=== PATIENT | male | born 1965 | race Caucasian/White ===

== ENCOUNTER 2017-01-29 23:17 | Inpatient (IN) ==
[2017-01-30] MEDS ORDERED: SODIUM CHLORIDE 0.9% 1,000 ML IV STA (00:50)
[2017-01-30] MEDS ORDERED: HYDROmorphone 2 MG/1 ML VIAL IV STA (00:50)
[2017-01-30] MEDS ORDERED: PANTOPRAZOLE 40 MG VIAL IV STA (00:50)
[2017-01-30] MEDS ORDERED: ONDANSETRON 4 MG/2 ML VIAL IV STA (00:50)
[2017-01-30] MEDS ORDERED: ONDANSETRON 4 MG/2 ML VIAL ONE (01:04)
[2017-01-30] MEDS ORDERED: HYDROmorphone 2 MG/1 ML VIAL ONE (01:04)
[2017-01-30] MEDS ORDERED: PANTOPRAZOLE 40 MG VIAL IV ONE (01:04)
[2017-01-30 01:09] LABS: Basophils # 0.1 10*3/uL (0.0-0.2); Basophils % 0.7 % (0.0-0.8); Eosinophils # 0.2 10*3/uL (0.0-0.87); Eosinophils % 1.5 % (0.00-10.9); Hemoglobin 17.1 GM/DL (14.0-18.0); Immature Granulocytes % 0.6 %; Immature Granulocytes Absolute 0.07 #; Lymphocytes # 3.1 10*3/uL (1.4-4.0); Mean Corpuscular HGB Conc 34.9 GM/DL (32-36); Mean Corpuscular Hemoglobin 32 PG (27-34); Mean Corpuscular Volume 90.9 FL (87-102); Monocytes # 0.7 10*3/uL (0.11-0.8); Monocytes % 6.4 % (1.7-12.7); Neutrophils # 7.4 10*3/uL (1.4-7.4); Neutrophils % 63.8 % (38.7-73.9); Platelet Count 293 T/CUMM (130-400); Red Blood Count 5.39 MC/CUMM (3.8-5.5); Red Cell Distribution Width 12.8 % (9.3-17.3); White Blood Count 11.6 T/CUMM (4-12)
--- NOTE | 2017-01-30 01:10 | Order Completion Report ---
See report scanned to EMR
--- NOTE | 2017-01-30 01:17 | Emergency Department Note ---
Adin Mabry Brittany, am scribing for, and in the presence of, Denis Bernstein MD 01:05. Day Mabry Charles R, MD, personally performed the services described in this documentation, ascribed by Yadira Oakley in my presence, and it is both accurate and complete . Arrival - Arrival Chief Complaint: Abdominal / Flank Pain Stated Complaint: bowel ED Nursing Triage Note: Patient to triage being sent from [facility] for further eval and treatment of SBO. Patient arrives to our ED with severe ABD pain. Patient reports last BM today, but states he has not been passing gas. denies N/V. [facility] ED was unable to put NG tube in patient. Patient arrives with records and CT report from [facility] ED. Mode of Arrival: Ambulatory Limitations: No Limitations Source: Patient, Family Time Seen by Provider: 01/30/17 00:40 - History of Present Illness HPI Narrative: This is a 51 y/o white male,who presents to the ED by EMS with c/o severe abdominal pain which started earlier today. He was sent from [facility] for further evaluation of SBO. He states he has had pancreatitis 5 years ago. He reports he seldom drinks beer now. He denies vomiting but notes nausea. When asked if he could try an NG tube in pt, he states "No because they were unsuccessful and caused me to have nosebleeds and trauma to the sinuses." While at [facility] a CT of the abdomen was preformed which reads as follows: Mid abdomen with likely closed loop small bowel obstruction with decompressed proximal small bowel and distal bowel. Left kidney with small intrarenal stone, non-obstructing. No obstructing ureter stone nor obstructive hydronephrosis. Pt has no other complaints/pain in the ED at this time. Pt has a PMhx of IDDM and pancreatisis. Pt has had abdominal surgeries (unknown at this time). Pt denies a family medical Hx. Pt seldom drinks beer. Onset (ago): hour(s) (Started at 2300 tonight) Consistency: constant Severity: severe, similar to previous episodes Allergies/Adverse Reactions: Allergies Allergy/AdvReac Type Severity Reaction Status Date / Time aspirin Allergy HIVES Verified 01/30/17 00:01 Home Medications: Home Medications Medication Instructions Recorded Confirmed Type Fenofibrate 1 tablet PO DAILY 01/30/17 01/30/17 History Insulin NPH Hum/Reg Insulin Hm 30 units SUBCUT DAILY W/BREAKFAST 01/30/17 History [NovoLIN 70/30] Insulin Regular, Human [NovoLIN R] 10 units SUBCUT DAILY W/SUPPER 01/30/1701/30 History Pravastatin [Pravachol] 1 tablet PO DAILY 01/30/17 01/30/17 History glyBURIDE [Glyburide] 2 tablet PO BID 01/30/17 01/30/17 History metFORMIN [Glucophage] 2 tablet PO BID 01/30/17 01/30/17 History Review of System - Review of System 12 point system: reviewed and no additional remarkable complaints except as stated - Review of System Gastrointestinal: Present: abdominal pain, nausea. Absent: vomiting Medical,Surgical,& Family Hx - Medical History Endocrine: History of: Diabetes Mellitus (IDDM) Gastrointestinal: History of: Pancreatitis - Surgical History Abdominal Surgeries: Surgical HX of: Abdominal Surgery - Social History Smoking Status: Smoker, status unknown Frequency of Alcohol Use: Rarely Type of Drug Use: None Exam Vital Signs: Vital Signs Temperature 98.6 F 01/29/17 23:54 Pulse Rate 98 H 01/29/17 23:54 Respiratory Rate 20 01/29/17 23:54 Blood Pressure 159/103 01/29/17 23:54 O2 Sat by Pulse Oximetry 96 01/29/17 23:54 - General General appearance: alert, in distress (Pt is in pain and uncomfortable ) - Eye Eye exam: Present: PERRL, EOMI. Absent: nystagmus - ENT ENT exam: Present: mucous membranes moist - Neck Neck exam: Present: trachea midline. Absent: tenderness - Chest Chest inspection: Present: symmetric chest wall rise. Absent: tenderness - Respiratory Respiratory exam: Present: normal lung sounds bilaterally. Absent: respiratory distress - Cardiovascular Cardiovascular exam: Present: normal rhythm, tachycardia, normal heart sounds. Absent: murmur, rubs, gallop, clicks, JVD - Abdominal Exam Abdominal exam: Present: tenderness (Diffuse abdominal tenderness), hypoactive bowel sounds (No bowel sounds ) - Rectal Exam Rectal exam: Present: deferred - Extremities Exam Extremities exam: Present: full ROM, normal capillary refill. Absent: tenderness, pedal edema, joint swelling, calf tenderness - Back Exam Back exam: Present: full ROM. Absent: tenderness, muscle spasm, rashes - Neurological Exam Neurological exam: Present: alert, oriented X3, CN II-XII intact. Absent: motor sensory deficit - Psychiatric Psychiatric exam: Present: normal affect, normal mood. Absent: depressed, agitated, anxious, flat affect, manic - Skin Skin exam: Present: warm, dry, intact, normal color. Absent: rash, cyanosis, diaphoresis Course - Consultations Consultation #1: Dr. Roldan will admit patient Time: 00:50 Results - Labs CBC & BMP: 01/30/17 00:50 Lab Results: I have reviewed the patients labs Labs: All results and CT scans from previous facility reviewed Disposition Clinical Impression: Abdominal pain, Small bowel obstruction Case discussed with: patient, patient's family Disposition: Still a Patient Condition: Guarded Time of Disposition: 01:16
[2017-01-30 01:29] LABS: Lactic Acid 1.2 MMOL/L (0.4-2.0)
[2017-01-30 01:31] LABS: Alanine Aminotransferase 43 U/L (16-61); Albumin 4.6 G/DL (3.4-5.0); Alkaline Phosphatase 50 U/L (45-117); Amylase 33 U/L (25-115); Aspartate Amino Transferase 22 U/L (0-37); Blood Urea Nitrogen 14 MG/DL (7-18); Calcium 9.1 MG/DL (8.5-10.1); Glucose 192 MG/DL (74-106); Osmolality,Calculated 282.5 MOS/KG (273-304); Potassium 4.3 MMOL/L (3.5-5.1); Sodium 139 MMOL/L (136-145); Total Protein 7.5 G/DL (6.4-8.3); Troponin I Only < 0.015 NG/ML (0.00-0.045)
[2017-01-30] MEDS ORDERED: DEXTROSE 50% 25 GM/50 ML SYRINGE IV PRN (01:54)
[2017-01-30] MEDS ORDERED: ALBUTEROL/IPRATROPIUM 3 ML NEB RESP TX PRN (01:54)
[2017-01-30] MEDS ORDERED: HYDROmorphone 2 MG/1 ML VIAL IV PRN (01:54)
[2017-01-30] MEDS ORDERED: ONDANSETRON 4 MG/2 ML VIAL IV PRN ×2 (01:54→09:44)
[2017-01-30] MEDS ORDERED: ACETAMINOPHEN 325 MG TABLET PO PRN (01:54)
[2017-01-30] MEDS ORDERED: GLUCAGON 1 MG VIAL IM PRN (01:54)
[2017-01-30] MEDS: SODIUM CHLORIDE 0.9% 1,000 ML IV SCH ×2 (02:30→11:59)
[2017-01-30] MEDS: metroNIDAZOLE INJ 500 MG in PREMIX 1 EACH IV SCH ×3 (03:03→18:27)
[2017-01-30] MEDS: PIPERACILLIN/TAZOBACTAM 3,375 MG in SODIUM CHLORIDE 0.9% 100 ML IV SCH ×3 (04:28→20:51)
[2017-01-30 06:42] LABS: Basophils % 0.7 % (0.0-0.8); Eosinophils % 1.3 % (0.00-10.9); Hematocrit 46.1 VOL% (42.0-52.0); Hemoglobin 15.7 GM/DL (14.0-18.0); Immature Granulocytes % 0.7 %; Lymphocytes # 2.9 10*3/uL (1.4-4.0); Lymphocytes % 29.2 % (21.2-54.2); Mean Corpuscular HGB Conc 34.1 GM/DL (32-36); Mean Corpuscular Hemoglobin 32 PG (27-34); Mean Corpuscular Volume 92.9 FL (87-102); Mean Platelet Volume 10.6 FL (9.6-12.0); Monocytes % 7.1 % (1.7-12.7); Neutrophils # 5.9 10*3/uL (1.4-7.4); Platelet Count 297 T/CUMM (130-400); Red Blood Count 4.96 MC/CUMM (3.8-5.5); Red Cell Distribution Width 12.7 % (9.3-17.3); White Blood Count 9.8 T/CUMM (4-12)
[2017-01-30 06:43] LABS: Basophils # 0.1 10*3/uL (0.0-0.2); Eosinophils # 0.1 10*3/uL (0.0-0.87); Immature Granulocytes Absolute 0.07 #; Monocytes # 0.7 10*3/uL (0.11-0.8)
[2017-01-30 07:22] LABS: Albumin 3.9 G/DL (3.4-5.0); Bilirubin,Total 1.4 MG/DL (0.2-1.0); Calcium 8.5 MG/DL (8.5-10.1); Magnesium 2.2 MG/DL (1.8-2.4); Osmolality,Calculated 283.4 MOS/KG (273-304); Potassium 4.3 MMOL/L (3.5-5.1); Total Protein 6.5 G/DL (6.4-8.3)
--- NOTE | 2017-01-30 07:36 | XRay Report ---
Exam: XR abdomen 2V Date: 01/30/2017 12:51 AM Comparison: None Indication: Generalized abdominal pain Technique:[Supine and erect abdomen] Findings: Multiple small air-fluid levels are noted in the small bowel. The abdomen has a hazy appearance. No free air is identified. Impression: Multiple small air-fluid levels are noted in the small bowel which may be related to small bowel obstruction. The abdomen has a hazy appearance which can be seen with fluid-filled bowel loops. Follow-up recommended. PROCEDURE INTERPRETED AT [facility] DEPARTMENT OF RADIOLOGY Final Report Signed by: Dr. Nicole Car
--- NOTE | 2017-01-30 07:37 | XRay Report ---
Portable chest Date: 01/30/2017 Clinical history: Generalized abdominal pain Comparison: None Technique: Portable AP sitting chest Findings: The heart is normal in size. Minimal atelectasis at the left lung base. Unremarkable mediastinum with degenerative changes. Impression: Minimal atelectasis at the left lung base. PROCEDURE INTERPRETED AT [facility] DEPARTMENT OF RADIOLOGY Final Report Signed by: Dr. Nicole Car
[2017-01-30] MEDS ORDERED: INSULIN NPH/REGULAR 70/30 100 UNIT/ML SUBCUT SCH (08:00)
[2017-01-30 08:09] LABS: Apearance,Urine CLEAR (Clear); Bilirubin,Urine Negative (Negative); Blood, Urine Negative (Negative); Glucose,Urine (UA) 150 mg/dL (Negative); Ketones,Urine Negative (Negative); Mucus,Urine Occasional /LPF (Occasional); Nitrite,Urine Negative (Negative); Protein,Urine Negative; RBC,Urine <1 /HPF (0-4); Squamous Epithelial Cell,Urine Occasional /HPF (0-10); Urine Color Yellow (Yellow); Urine Specific Gravity 1.021 (1.001-1.035); Urine Urobilinogen < 2.0 EU/DL (0.2-1.0); WBC,Urine <1 /HPF (0-6)
[2017-01-30] MEDS: INSULIN REGULAR 100 UNIT/ML SUBCUT SCH ×4 (08:39→20:50)
[2017-01-30] MEDS: glyBURIDE 5 MG TABLET PO SCH ×2 (08:39→17:12)
[2017-01-30] MEDS ORDERED: metFORMIN 500 MG TABLET PO SCH (09:00)
[2017-01-30] MEDS ORDERED: ALUMINUM/MAGNES/SIMETH MAX STR 30 ML UDCUP PO PRN (09:39)
--- NOTE | 2017-01-30 09:48 | Hospitalist Consult Note ---
<Pricila Jay - Last Filed: 01/30/17 09:45> Assessment and Plan (1) Diabetes Status: Acute Assessment and plan: Accuchecks achs. Sliding scale insulin. Hbg A1c. Consult dm management to educate. Current Visit: Yes (2) Abdominal pain Status: Acute Assessment and plan: prn pain meds. Current Visit: Yes (3) Small bowel obstruction Status: Acute Assessment and plan: Defer to surgery. IVFs/ IV antibiotics. Current Visit: Yes History of Present Illness - Data of Consult Patient: new to practice Consult date: 01/30/17 Primary care physician: Onel Sinha - Consult Narrative Reason for consult: diabetes management History of present illness: Mr. Miller is a 51 year old white male history of pancreatitis and diabetes presents with complaints of abdominal pain. Patient states that the pain began several hours before presentation. Pt. has a history of pancreatitis and reported at the time the pain felt similar. He reported to an outside facility and a CT was performed revealing 'possible small bowel obstruction'. Pt. was transferred to our ED and was admitted to the surgery service. Hospitalist service has been consulted to manage patient's diabetes. Pt. was seen and examined in room 344 with mother present at the bedside. Pt states he has been a diabetic for 17 years. He reports taking insulin injections to manage his blood sugars. He says he is followed by Dr. Sinha in [place]. He reports his most recent Hbg A1c was 10.1. Home meds will be reviewed and adjusted accordingly. Hbg a1c will be checked. A consult for diabetes education will be ordered. Thank you for the consult. We will follow this patient with you. CC: Tone Roldan MD - Home Medications and Allergies Home Medications: Home Medications Medication Instructions Recorded Confirmed Type Fenofibrate 160 mg PO DAILY 01/30/17 01/30/17 History Insulin NPH Hum/Reg Insulin Hm 30 units SUBCUT DAILY W/BREAKFAST 01/30/17 History [NovoLIN 70/30] Insulin Regular, Human [NovoLIN R] 10 units SUBCUT DAILY W/SUPPER 01/30/1701/30 History Pravastatin [Pravachol] 20 mg PO DAILY 01/30/17 01/30/17 History glyBURIDE [Glyburide] 10 mg PO BID 01/30/17 01/30/17 History metFORMIN [Glucophage] 1,000 mg PO BID 01/30/17 01/30/17 History Allergies/Adverse Reactions: Allergies Allergy/AdvReac Type Severity Reaction Status Date / Time aspirin Allergy HIVES Verified 01/30/17 00:01 Medical,Surgical,& Family Hx - Medical History Endocrine: History of: Diabetes Mellitus (IDDM), Dyslipidemia Gastrointestinal: History of: Pancreatitis Musculoskeletal: Comment Only: Musculoskeletal Problems (shoulder pain, blt arm pain) - Surgical History Abdominal Surgeries: Surgical HX of: Abdominal Surgery - Family History Family History: Reports;: Family Diabetes (maternal grandparents), Family Heart Disease (maternal grandmother) Denies;: Family Anesthesia Reaction, Family Cancer, Family Hematology, Family Hypertension, Family Psychiatric Problems, Family Stroke - Social History Smoking Status: Smoker, status unknown (occasional) Frequency of Alcohol Use: Rarely Type of Drug Use: None Marital Status: Single Lives With:: Parent Functional capacity: independent ambulation - Constitutional Constitutional: Absent: chills, fever(s) - EENT Eyes: Absent: blurry vision Ears: Absent: decreased hearing Nose, mouth and throat: Present: headache(s) - Cardiovascular Cardiovascular: Absent: chest pain at rest, radiating jaw, neck or arm pain - Respiratory Respiratory: Absent: cough, dyspnea on exertion - Gastrointestinal Gastrointestinal: Present: abdominal pain, nausea - Genitourinary Genitourinary: Absent: difficulty urinating - Musculoskeletal Musculoskeletal: Absent: back pain - Neurological Neurological: Absent: dizziness, memory loss - Psychiatric Psychiatric: Absent: confusion, depression - Endocrine Endocrine: Absent: fatigue - Hematologic/Lymphatic Hematologic/Lymphatic: Absent: easy bleeding, easy bruising Exam - Constitutional Vitals: Period Temp Pulse Resp BP Sys/Purcell Pulse Ox Last 24 Hr 97.3 F-98.6 F 67-98 16-20 111-159/64-103 93-100 General appearance: no acute distress, over weight - Head Head exam: Present: normal inspection, normocephalic - Eye Eye exam: Present: EOMI Pupils: Present: RENETTA - ENT ENT exam: Present: normal exam - Respiratory Respiratory exam: Present: clear to auscultation bilaterally. Absent: wheezes - Cardiovascular Cardiovascular exam: Present: regular rate and rhythm - GI/Abdominal GI/Abdominal exam: Present: normal bowel sounds, tenderness, soft - Extremities Exam Extremities exam: Present: normal inspection, normal capillary refill, full ROM. Absent: edema - Neurological Exam Neurological exam: Present: alert, oriented X3 - Psychiatric Psychiatric exam: Present: normal affect, normal mood - Skin Skin exam: Present: normal color, warm, dry Results - Labs CBC & BMP: 01/30/17 04:29 01/30/17 04:29 Lab Results: I have reviewed the past 24 hour labs Quality Measures - VTE Contraindication to Pharmacological VTE Prophylaxis: Clinical assessment deems Pt at low risk, no prophalaxis needed <KenroyMelody R - Last Filed: 01/30/17 13:36> Assessment and Plan (1) Small bowel obstruction Status: Acute Assessment and plan: Dr. Roldan managing Current Visit: Yes (2) Diabetes Status: Acute Assessment and plan: hold metformin, change IVF to 1/2 ns, cont glyburide for now. Hold insulin Current Visit: Yes History of Present Illness - Consult Narrative History of present illness: Mr. Miller is a 51 year old male seen and examined. Agree with above. Patient denies vomiting, has passed some gas but no bowel movements. They attempted to pass an NG but were unsuccessful. CC: Tone Roldan MD Medical,Surgical,& Family Hx - Social History Smoking Status: Former smoker Marital Status: Single Lives With:: Significant Other - EENT Eyes: Absent: loss of vision Ears: Absent: ear discharge - Gastrointestinal Gastrointestinal: Absent: constipation, diarrhea, vomiting - Musculoskeletal Musculoskeletal: Absent: joint swelling - Neurological Neurological: Absent: syncope - Endocrine Endocrine: Absent: heat intolerance Exam - Constitutional Vitals: Period Temp Pulse Resp BP Sys/Purcell Pulse Ox Last 24 Hr 96.8 F-98.6 F 67-98 16-20 111-159/64-103 93-100 - Eye Eye exam: Absent: scleral icterus Pupils: Present: normal accommodation - ENT ENT exam: Present: normal external ear exam - Neck Neck exam: Absent: lymphadenopathy, thyromegaly - Cardiovascular Cardiovascular exam: Absent: systolic murmur - Neurological Exam Neurological exam: Present: CN II-XII intact, reflexes normal. Absent: motor sensory deficit Results - Labs CBC & BMP: 01/30/17 04:29 01/30/17 04:29 - Diagnostic Findings Procedure: Abdominal x-ray: report reviewed by me (air fluids levels ), Chest x- ray: report reviewed by me (nothing acute )
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
[2017-01-30] MEDS: FENOFIBRATE 160 MG TABLET PO SCH (09:51)
[2017-01-30] MEDS: PANTOPRAZOLE 40 MG VIAL IV SCH (09:51)
[2017-01-30] MEDS: PRAVASTATIN 20 MG TABLET PO SCH (09:51)
--- NOTE | 2017-01-30 10:53 | XRay Report ---
2 view chest 01/30/2017 1038 AM Indication: Shortness of breath Comparison: Same date at 0150 hours Findings: Cardiomediastinal contours are normal. Lungs are clear bilaterally. . No acute osseous abnormalities. Visualized upper abdomen demonstrates no acute pathology. Impression: Normal chest PROCEDURE INTERPRETED AT [facility] DEPARTMENT OF RADIOLOGY Final Report Signed by: Kavitha Mckeon MD
--- NOTE | 2017-01-30 10:55 | XRay Report ---
EXAM: XR abdomen 2V CLINICAL INDICATION: Abdominal Pain COMPARISON: None Findings: No gastric distention. No abnormally dilated small bowel loops are identified to suggest obstruction. No free intraperitoneal air. . Visceral shadows are normal. No abnormal focal soft tissue masses or calcific densities identified in the abdomen or pelvis. IMPRESSION: No radiographic abnormality PROCEDURE INTERPRETED AT [facility] DEPARTMENT OF RADIOLOGY Final Report Signed by: Kavitha Mckeon MD
[2017-01-30] MEDS: SODIUM CHLORIDE 0.45% 1,000 ML IV SCH ×2 (12:26→17:59)
[2017-01-30] MEDS ORDERED: SODIUM CHLORIDE 0.45% 1,000 ML IV SCH (14:00)
[2017-01-30] MEDS ORDERED: INSULIN REGULAR 100 UNIT/ML SUBCUT SCH (17:00)
[2017-01-31 02:15] LABS: Basophils # 0.1 10*3/uL (0.0-0.2); Basophils % 0.6 % (0.0-0.8); Eosinophils # 0.3 10*3/uL (0.0-0.87); Eosinophils % 3.7 % (0.00-10.9); Hematocrit 44.6 VOL% (42.0-52.0); Hemoglobin 15.6 GM/DL (14.0-18.0); Immature Granulocytes % 0.5 %; Immature Granulocytes Absolute 0.04 #; Lymphocytes # 3.1 10*3/uL (1.4-4.0); Mean Corpuscular Hemoglobin 32 PG (27-34); Mean Corpuscular Volume 91.6 FL (87-102); Mean Platelet Volume 10.4 FL (9.6-12.0); Monocytes # 0.6 10*3/uL (0.11-0.8); Monocytes % 7.6 % (1.7-12.7); Neutrophils # 3.8 10*3/uL (1.4-7.4); Neutrophils % 48.6 % (38.7-73.9); Platelet Count 274 T/CUMM (130-400); Red Blood Count 4.87 MC/CUMM (3.8-5.5); Red Cell Distribution Width 12.6 % (9.3-17.3); White Blood Count 7.9 T/CUMM (4-12)
[2017-01-31] MEDS: metroNIDAZOLE INJ 500 MG in PREMIX 1 EACH IV SCH ×2 (02:19→13:48)
[2017-01-31 02:43] LABS: Albumin 3.7 G/DL (3.4-5.0); Bilirubin,Total 2.1 MG/DL (0.2-1.0); Calcium 8.8 MG/DL (8.5-10.1); Osmolality,Calculated 279.3 MOS/KG (273-304); Potassium 4.3 MMOL/L (3.5-5.1); Total Protein 6.2 G/DL (6.4-8.3)
[2017-01-31] MEDS: PIPERACILLIN/TAZOBACTAM 3,375 MG in SODIUM CHLORIDE 0.9% 100 ML IV SCH ×2 (03:50→13:48)
[2017-01-31] MEDS: PANTOPRAZOLE 40 MG VIAL IV SCH (09:02)
[2017-01-31] MEDS: INSULIN REGULAR 100 UNIT/ML SUBCUT SCH ×2 (09:02→13:48)
[2017-01-31] MEDS: FENOFIBRATE 160 MG TABLET PO SCH (09:03)
[2017-01-31] MEDS: glyBURIDE 5 MG TABLET PO SCH (09:03)
[2017-01-31] MEDS: PRAVASTATIN 20 MG TABLET PO SCH (09:03)
--- NOTE | 2017-01-31 10:42 | General Surgery Progress Note ---
Assessment and Plan (1) Small bowel obstruction Status: Acute Assessment and plan: Impression: Partial small bowel obstruction resolved Plan: He has been tolerating clear liquids. He wants regular food. He would like to go home. Will give him a regular diet if he tolerates it without any nausea vomiting worsening abdominal pain and will allow discharge later today. He will follow-up with Dr. Roldan on an as-needed basis. He was instructed to call Dr. Roldan or return to the emergency room for any nausea vomiting worsening abdominal pain or any other changes. Current Visit: Yes Subjective Patient reports: Present: no new complaints, feels better Narrative: Patient states he is back to normal. He has no abdominal pain. He says his abdomen is mildly sore but much improved. He wants to eat and go home. He is passing gas. He has not had a bowel movement but states that he usually only has about 1 per week. Exam - Constitutional Vitals: Period Temp Pulse Resp BP Sys/Purcell Pulse Ox Last 24 Hr 96.8 F-98.7 F 71-79 17-20 107-155/65-78 95-98 General appearance: normal weight - Head Head exam: Present: normal inspection - Neck Neck exam: Present: normal inspection - Respiratory Respiratory exam: Present: clear to auscultation bilaterally - Cardiovascular Cardiovascular exam: Present: RRR - GI/Abdominal GI/Abdominal exam: Present: soft (Nontender nondistended) - Extremities Exam Extremities exam: Present: normal inspection - Back Exam Back exam: Present: normal inspection - Neurological Exam Neurological exam: Present: alert, oriented X3 Speech: Present: normal - Skin Skin exam: Present: normal color Results - Labs CBC & BMP: 01/31/17 01:20 01/31/17 01:20 Lab Results: I have reviewed the past 24 hour labs Quality Measures - VTE Contraindication to Pharmacological VTE Prophylaxis: Clinical assessment deems Pt at low risk, no prophalaxis needed
--- NOTE | 2017-01-31 10:44 | Discharge Summary ---
Hospital Course - Hospital Course Hospital Course: Patient admitted with partial small bowel obstruction. This has resolved with conservative management. Diagnosis - Discharge Diagnosis (1) Small bowel obstruction Status: Acute Discharge Plan - Discharge Medications Continue metFORMIN [Glucophage] 1,000 mg PO BID Insulin Regular, Human [NovoLIN R] 10 units SUBCUT DAILY W/SUPPER Insulin NPH Hum/Reg Insulin Hm [NovoLIN 70/30] 30 units SUBCUT DAILY W/ BREAKFAST Discontinued Fenofibrate 160 mg PO DAILY glyBURIDE [Glyburide] 10 mg PO BID Pravastatin [Pravachol] 20 mg PO DAILY - Follow Up or Referral - Forms/Instructions Exam - Constitutional Vitals: Period Temp Pulse Resp BP Sys/Purcell Pulse Ox Last 24 Hr 96.8 F-98.7 F 71-79 17-20 107-155/65-78 95-98 Discharge Results Procedures and tests throughout hospitalization: Pending Orders 01/30/17 01:12 Blood Culture Stat Labs on day of discharge: Labs from last 24 hours 01/31/17 01/31/17 01/31/17 08:10 01:20 01:20 WBC 7.9 RBC 4.87 Hgb 15.6 Hct 44.6 MCV 91.6 MCH 32 MCHC 35.0 RDW 12.6 Plt Count 274 MPV 10.4 Neut % (Auto) 48.6 Lymph % (Auto) 39.0 [place] % (Auto) 7.6 Eos % (Auto) 3.7 Baso % (Auto) 0.6 Neut # (Auto) 3.8 Lymph # (Auto) 3.1 [place] # (Auto) 0.6 Eos # (Auto) 0.3 Baso # (Auto) 0.1 Immature Gran % 0.5 Nucleated RBC % 0.0 Immature Gran # 0.04 Nucleated RBCs # 0.00 Immature Plt Fraction 0.0 Sodium 141 Potassium 4.3 Chloride 107 Carbon Dioxide 28 Anion Gap 10.3 BUN 10 Creatinine 1.10 GFR Calculation 111 BUN/Creatinine Ratio 9.00 Glucose 103 POC Glucose 170 H Hemoglobin A1c Calculated Osmolality 279.3 Calcium 8.8 Total Bilirubin 2.10 H AST 17 ALT 33 Alkaline Phosphatase 44 L Total Protein 6.2 L Albumin 3.7 Globulin 2.5 Albumin/Globulin Ratio 1.4 Amylase Lipase 01/31/17 01/31/17 01/30/17 01:20 01:20 20:49 WBC RBC Hgb Hct MCV MCH MCHC RDW Plt Count MPV Neut % (Auto) Lymph % (Auto) [place] % (Auto) Eos % (Auto) Baso % (Auto) Neut # (Auto) Lymph # (Auto) [place] # (Auto) Eos # (Auto) Baso # (Auto) Immature Gran % Nucleated RBC % Immature Gran # Nucleated RBCs # Immature Plt Fraction Sodium Potassium Chloride Carbon Dioxide Anion Gap BUN Creatinine GFR Calculation BUN/Creatinine Ratio Glucose POC Glucose 140 H Hemoglobin A1c 8.1 H Calculated Osmolality Calcium Total Bilirubin AST ALT Alkaline Phosphatase Total Protein Albumin Globulin Albumin/Globulin Ratio Amylase 39 Lipase 197.0 D 01/30/17 01/30/17 15:48 11:04 WBC RBC Hgb Hct MCV MCH MCHC RDW Plt Count MPV Neut % (Auto) Lymph % (Auto) [place] % (Auto) Eos % (Auto) Baso % (Auto) Neut # (Auto) Lymph # (Auto) [place] # (Auto) Eos # (Auto) Baso # (Auto) Immature Gran % Nucleated RBC % Immature Gran # Nucleated RBCs # Immature Plt Fraction Sodium Potassium Chloride Carbon Dioxide Anion Gap BUN Creatinine GFR Calculation BUN/Creatinine Ratio Glucose POC Glucose 126 H 171 H Hemoglobin A1c Calculated Osmolality Calcium Total Bilirubin AST ALT Alkaline Phosphatase Total Protein Albumin Globulin Albumin/Globulin Ratio Amylase Lipase Preliminary micro results at discharge 01/30/17 01:12 Blood Culture - Preliminary Blood No growth at 1 day 01/30/17 01:12 Blood Culture - Preliminary Blood No growth at 1 day DS: Provider Date of admission: 01/30/17 01:17 Primary care physician: . No PCP Attending physician on admission: Tone Roldan MD Consults: 01/30/17 01:54 Consult to Case Mgmt/Social Srvs [CONS] Routine Reason for Case Mgmt/Social Srvs: Rehab Other Consult Comment: Home situation Consult to Physician [CONS] Routine Comment: Medical commercial management accountant Provider: [facility] Consulting Provider Notified: Yes When should Consulting Provider be notified: In am Person Notified: Deanna called Date Notified: 01/30/17 Time Notified: 08:07 01/30/17 11:37 Consult to [facility], Educator [CONS] Routine Reason for Linen Room Worker: Diet Discharging clinician: Ortega Martell MD
--- NOTE | 2017-01-31 11:02 | Hospitalist Progress Note ---
Assessment and Plan (1) Small bowel obstruction Status: Acute Assessment and plan: Resolved, most likely an ileus Current Visit: Yes (2) Diabetes Status: Acute Assessment and plan: Hemoglobin A1c is 8.1., Creatinine is down to 1.1. Blood sugars are excellent. Current Visit: Yes Hospitalist: Subjective Interval history: Patient has good bowel sounds today. He has not passed stool but he has had a lot of gas and he did help have a bowel movement a few days ago. Patient seems stable for home. Exam - Constitutional Vitals: Period Temp Pulse Resp BP Sys/Purcell Pulse Ox Last 24 Hr 96.8 F-98.7 F 71-79 17-20 107-155/65-78 95-98 Exam: Heart Rate-[RRR] Lungs-[CTAB] GI-[+bs soft, NT] Ext-[no edema] Neuro [Motor 5/5], [alert and oriented times 3] psych [normal mood and affect] General [no acute distress] Results - Labs CBC & BMP: 01/31/17 01:20 01/31/17 01:20 Lab Results: I have reviewed the past 24 hour labs Quality Measures - VTE Contraindication to Pharmacological VTE Prophylaxis: Clinical assessment deems Pt at low risk, no prophalaxis needed
[2017-01-31 12:35] VITALS: BP 122/81
== END 2017-01-31 14:24 | disposition home or self-care (01) | DRG 390 ==
LOC: N.ED 23:17 → N.EDINP 01-30 01:17 → N.3E 01-30 01:52
PROVIDERS: ADMIT Specialist; ATTEND Specialist